=== PATIENT | female | born 1990 | race Two or more races ===

== ENCOUNTER 2017-03-28 08:44 | Emergency (ER) | payer BC ==
[2017-03-28 08:56] VITALS: O2SAT 100
[2017-03-28] MEDS ORDERED: Sodium Chloride 0.9% 1,000 ML IV ONE ×2 (09:14→12:52)
[2017-03-28 09:22] LABS: RBC URINE < 1 /hpf (0-3); URINE BACTERIA MOD (<OCC); URINE BILIRUBIN NEGATIVE (NEGATIVE); URINE BLOOD 2+ (NEGATIVE); URINE COLOR Straw (YELLOW); URINE GLUCOSE (UA) NORMAL (Normal); URINE KETONE NEGATIVE (NEGATIVE); URINE LEUKOCYTE ESTERASE NEG Leu/uL (Negative); URINE PROTEIN 2+ mg/dL (NEGATIVE); URINE UROBILINOGEN NORMAL mg/dL (0.2-1.0); WBC URINE 5 /hpf (0-5)
[2017-03-28] MEDS ORDERED: Sodium Chloride 0.9% 1,000 ML ONE ×2 (09:35→13:36)
--- NOTE | 2017-03-28 09:56 | C.PDOC ---
History Of Present Illness 27 y/o female presents to ED for evaluation of abdominal pain. Pt states that her symptoms feel like her prior UTI. 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 Pt states that she had "kidney infection" in the past. Otherwise, denies diarrhea, dysuria, hematuria, urinary frequency, back pain, chills, or fever. Time Seen by Provider: 03/28/17 08:55 Chief Complaint (Nursing): GI Problem History Per: Patient History/Exam Limitations: no limitations Onset/Duration Of Symptoms: Days Current Symptoms Are (Timing): Still Present Location Of Pain/Discomfort: Diffuse Radiation Of Pain To:: None Quality Of Discomfort: "Pain" Associated Symptoms: Nausea, Vomiting. denies: Fever, Chills, Diarrhea, Loss Of Appetite, Back Pain, Chest Pain, Constipation, Urinary Symptoms Exacerbating Factors: None Alleviating Factors: None Recent travel outside of the [place]: No Additional History Per: Patient Abnormal Vaginal Bleeding: No Past Medical History Reviewed: Historical Data, Nursing Documentation, Vital Signs Vital Signs: Last Vital Signs Temp 98.6 F 03/28/17 15:02 Pulse 70 03/28/17 15:02 Resp 18 03/28/17 15:02 BP 117/68 03/28/17 15:02 Pulse Ox 100 03/28/17 15:17 Family History: States: Unknown Family Hx - Social History Hx Tobacco Use: Yes Hx Alcohol Use: Yes Hx Substance Use: No - Immunization History Hx Tetanus Toxoid Vaccination: No Hx Influenza Vaccination: No Hx Pneumococcal Vaccination: No Review Of Systems Except As Marked, All Systems Reviewed And Found Negative. Constitutional: Negative for: Fever, Chills Cardiovascular: Negative for: Chest Pain, Palpitations Respiratory: Negative for: Cough, Shortness of Breath Gastrointestinal: Positive for: Nausea, Vomiting, Abdominal Pain. Negative for : Diarrhea, Constipation, Hematemesis Genitourinary: Negative for: Dysuria, Frequency, Hematuria, Vaginal Discharge, Vaginal Bleeding Musculoskeletal: Negative for: Back Pain Physical Exam - Physical Exam Appears: Non-toxic, No Acute Distress Skin: Warm, Dry, No Rash Head: Atraumatic, Normacephalic Eye(s): bilateral: Normal Inspection, EOMI Oral Mucosa: Moist Neck: Supple Chest: Symmetrical Cardiovascular: Rhythm Regular, No Murmur Respiratory: Normal Breath Sounds, No Rales, No Rhonchi, No Wheezing Gastrointestinal/Abdominal: Soft, Tenderness (mild upper and epigastric), No Distention, No Guarding, No Rebound Back: CVA Tenderness (left ), No Vertebral Tenderness Extremity: Normal ROM, No Pedal Edema Neurological/Psych: Oriented x3, Normal Speech, Normal Cognition ED Course And Treatment - Laboratory Results Result Diagrams: 03/28/17 09:52 03/28/17 14:27 Lab Interpretation: Abnormal Urine POC: Negative O2 Sat by Pulse Oximetry: 100 (on RA) Pulse Ox Interpretation: Normal - CT Scan/US No standard instances Other Rad Studies (CT/US): Read By Radiologist, Radiology Report Reviewed CT/US Interpretation: FINDINGS: RIGHT KIDNEY: Measures: 11.6 x 4.3 x 5.2 cm. Small right perinephric fluid. No hydronephrosis or obstructing calculus identified. LEFT KIDNEY: Measures: 12.3 x 6.7 x 5.7 cm. No hydronephrosis or obstructing calculus identified. OTHER FINDINGS: Prevoid urinary bladder measures approximately 7.9 x 3.4 x 8.4 cm, calculated volume 115.4 cc. Postvoid urinary bladder measures approximately 5.2 x 2.3 x 5.9 cm, calculated volume 36.6 cc. Bilateral ureteral jets are identified. IMPRESSION: Small right perinephric fluid. No hydronephrosis or obstructing calculus identified. Prevoid urinary bladder volume 115.4 cc. Postvoid urinary bladder volume 36.6 cc. Progress Note: Blood work, UA ordered and reviewed. Patient was given IV fluids , Zofran. Treated with additional NSS and macrobid. Case discussed with Dr Ely who agreed to admit but patient requesting discharge and will follow up with Dr Ely tomorrow at office. Patient given copies of US and labs. On re- evaluation abdomen soft in no distress Reassessment Condition: Improved Medical Decision Making Medical Decision Making: Case discussed with Dr Ely who reportas that creatin was 0.8 last week at office Disposition Discussed With : Essence Ely Doctor Will See Patient In The: Hospital Counseled Patient/Family Regarding: Studies Performed, Diagnosis, Need For Followup, Rx Given - Disposition Referrals: Mando Buitrago DO [Staff Provider] - Disposition: HOME/ ROUTINE Disposition Time: 15:00 Condition: STABLE Additional Instructions: Follow up with PMD and Dr Ely for further evaluation Prescriptions: Nitrofurantoin Macrocrystals [Macrobid] 100 mg PO BID #14 cap Instructions: Flank Pain (ED), Back Pain (ED) Forms: [facility] (Maltese) - POA Present On Arrival: None - Clinical Impression Clinical Impression: Acute urinary tract infection, Renal dysfunction, Dehydration - PA / QUALITY CONTROL / Resident Statement MD/DO has reviewed & agrees with the documentation as recorded. - Scribe Statement The provider has reviewed the documentation as recorded by the Scribe Gabriella Renae All medical record entries made by the Catarino were at my direction and personally dictated by me. I have reviewed the chart and agree that the record accurately reflects my personal performance of the history, physical exam, medical decision making, and the department course for this patient. I have also personally directed, reviewed, and agree with the discharge instructions and disposition.
[2017-03-28 09:58] LABS: BASO # 0.1 K/uL (0.0-0.2); BASO % 0.6 % (0.0-2.0); EOS # 0.1 K/uL (0.0-0.7); EOS % 1.1 % (0.0-4.0); HEMATOCRIT 36.8 % (34.0-47.0); LYMPH # 1.2 K/uL (1.0-4.3); LYMPH % 12.7 % (20.0-40.0); MEAN CELL VOLUME 87.5 fL (81.0-99.0); MEAN CORPUSCULAR HEMOGLOBIN 29.8 pg (27.0-31.0); MEAN CORPUSCULAR HGB CONC 34.1 g/dL (33.0-37.0); MEAN PLATELET VOLUME 8.5 fL (7.2-11.7); MONO # 0.8 K/uL (0.0-0.8); MONO % 9.2 % (0.0-10.0); RED CELL DISTRIBUTION WIDTH 12.4 % (11.5-14.5); WHITE BLOOD COUNT 9.2 K/uL (4.8-10.8)
[2017-03-28 10:06] LABS: POTASSIUM 4.1 mmol/L (3.6-5.2)
[2017-03-28 10:08] LABS: ALB/GLOB RATIO 1.3 (1.0-2.1); BILIRUBIN,TOTAL 0.7 mg/dL (0.2-1.3); TOTAL PROTEIN 7.4 g/dL (6.3-8.3)
[2017-03-28 10:09] LABS: CALCIUM 9.2 mg/dl (8.6-10.4)
--- NOTE | 2017-03-28 12:34 | US ---
PROCEDURE: Renal/urinary bladder ultrasound HISTORY: flank pain, elevated creatine COMPARISON: CT abdomen and pelvis without contrast performed 06/22/13 TECHNIQUE: Sonogram of the kidneys and urinary bladder. FINDINGS: RIGHT KIDNEY: Measures: 11.6 x 4.3 x 5.2 cm. Small right perinephric fluid. No hydronephrosis or obstructing calculus identified. LEFT KIDNEY: Measures: 12.3 x 6.7 x 5.7 cm. No hydronephrosis or obstructing calculus identified. OTHER FINDINGS: Prevoid urinary bladder measures approximately 7.9 x 3.4 x 8.4 cm, calculated volume 115.4 cc. Postvoid urinary bladder measures approximately 5.2 x 2.3 x 5.9 cm, calculated volume 36.6 cc. Bilateral ureteral jets are identified. IMPRESSION: Small right perinephric fluid. No hydronephrosis or obstructing calculus identified. Prevoid urinary bladder volume 115.4 cc. Postvoid urinary bladder volume 36.6 cc.
[2017-03-28 14:48] LABS: POTASSIUM 4.1 mmol/L (3.6-5.2)
[2017-03-28 14:51] LABS: CALCIUM 8.2 mg/dl (8.6-10.4)
[2017-03-28 15:03] VITALS: BP 117/68; PULSE 70; RESP 18; TEMP 98.6
== END 2017-03-28 15:29 | disposition home or self-care (01) ==
LOC: C.ER 08:44
DX: N39.0 Urinary tract infection, site not specified (principal); N28.9 Disorder of kidney and ureter, unspecified; E86.0 Dehydration
CPT/HCPCS: 76770; 76857; 80048; 80053; 81001; 83690; 84703; 85025; 96361; 96374; 99285; J2405; J7040

== ENCOUNTER 2017-12-29 17:55 | Emergency (ER) | payer SELFPAY ==
[2017-12-29 18:03] VITALS: BP 121/78; O2SAT 98
[2017-12-29 18:31] LABS: HCG,QUALITATIVE URINE NEGATIVE (NEGATIVE)
[2017-12-29 18:34] LABS: SQUAMOUS EPITHIAL 5 /hpf (0-5); URINE BILIRUBIN NEGATIVE (NEGATIVE); URINE BLOOD NEGATIVE (NEGATIVE); URINE CLARITY Clear (Clear); URINE COLOR Straw (YELLOW); URINE GLUCOSE (UA) NORMAL (Normal); URINE LEUKOCYTE ESTERASE TRACE Leu/uL (Negative); URINE PROTEIN NEGATIVE (NEGATIVE); URINE UROBILINOGEN NORMAL mg/dL (0.2-1.0)
--- NOTE | 2017-12-29 19:09 | C.PDOC ---
History Of Present Illness 27 y/o female presents to the ED complaining of vaginal pain with burning and itching sensation for one week. Patient noted painful blisters yesterday. She denies vaginal discharge, fever, nausea, or vomiting. Patient stated she had a brief menses. Patient states partner performed oral sex on her recently and in last few days, developed a cold sore on his lip. Time Seen by Provider: 12/29/17 18:17 Chief Complaint (Nursing): Female Genitourinary History Per: Patient Onset/Duration Of Symptoms: Days Current Symptoms Are (Timing): Still Present Severity: Moderate Quality Of Discomfort: Burning, Other (Itching) Past Medical History Reviewed: Historical Data, Nursing Documentation, Vital Signs Vital Signs: Last Vital Signs Temp 98.8 F 12/29/17 20:31 Pulse 81 12/29/17 20:31 Resp 20 12/29/17 20:31 BP 121/78 12/29/17 20:31 Pulse Ox 98 12/30/17 22:34 - Medical History PMH: No Chronic Diseases Surgical History: No Surg Hx Family History: States: No Known Family Hx - Social History Hx Tobacco Use: Yes Hx Alcohol Use: Yes Hx Substance Use: No - Immunization History Hx Tetanus Toxoid Vaccination: No Hx Influenza Vaccination: No Hx Pneumococcal Vaccination: No Review Of Systems Constitutional: Negative for: Fever, Chills Gastrointestinal: Negative for: Nausea, Vomiting, Abdominal Pain, Diarrhea Genitourinary: Positive for: Pelvic Pain, Other (Blisters on labia). Negative for: Vaginal Discharge, Vaginal Bleeding Musculoskeletal: Negative for: Back Pain Physical Exam - Physical Exam Appears: Non-toxic, No Acute Distress, Other (uncomfortable) Gastrointestinal/Abdominal: Soft, No Tenderness, No Distention, No Guarding Pelvic: No Vaginal Bleeding, No Vaginal Discharge, No Cervical Motion Tenderness , Other (vesicles on external labia and clitoral segovia, no vesicles noted in vaginal vault. ) Neurological/Psych: Oriented x3 ED Course And Treatment O2 Sat by Pulse Oximetry: 98 (RA) Pulse Ox Interpretation: Normal Progress Note: Labs ordered. Patient instructed to follow up with PMD. Medical Decision Making Medical Decision Makin Patient reports partner performed oral sex and she noticed he recently developed a fever blister on lip. 2018 lab sts one hr more for rpr; pt sts she will go home and return for tx if positive [id number] to pt, aware rpr non reactive. Disposition Counseled Patient/Family Regarding: Studies Performed, Diagnosis, Need For Followup, Rx Given - Disposition Disposition: HOME/ ROUTINE Disposition Time: 20:19 Condition: STABLE Additional Instructions: Please follow up with your online producer on Sunday as scheduled. take valtrex as scheduled. Tylenol or mtorin for pain. Dip clean qtip into viscous lidocaine and apply to panful lesions every 2-3 hours. No sexual intercourse until healed. Return to ER for any worse symptoms. Prescriptions: Valacyclovir HCl [Valtrex] 1 gm PO BID #19 tablet Instructions: Genital Herpes (DC) Forms: [facility] (Belarusian), General Discharge Instructions - Clinical Impression Clinical Impression: Herpes labialis - PA / VIDEO RENTAL CLERK / Resident Statement MD/DO has reviewed & agrees with the documentation as recorded. - Scribe Statement The provider has reviewed the documentation as recorded by the Scribe Liza Ricardo All medical record entries made by the Scribe were at my direction and personally dictated by me. I have reviewed the chart and agree that the record accurately reflects my personal performance of the history, physical exam, medical decision making, and the department course for this patient. I have also personally directed, reviewed, and agree with the discharge instructions and disposition.
[2017-12-29 20:33] VITALS: PULSE 81; RESP 20; TEMP 98.8
== END 2017-12-29 20:32 | disposition home or self-care (01) ==
LOC: C.ER 17:55
DX: B00.1 Herpesviral vesicular dermatitis (principal); Z72.0 Tobacco use